=== PATIENT | female | born 2000 | race Two or more races ===

== ENCOUNTER 2020-12-14 15:20 | Emergency (ER) | payer OTHER ==
[~2020-12-14] VITALS: Ht 162.6 cm; Wt 82.6 kg
== END 2020-12-14 18:56 | disposition home or self-care (01) ==
LOC: EMR PED 15:20 → ER 15:55
DX: O26.891 Other specified pregnancy related conditions, first trimester (principal); R10.2 Pelvic and perineal pain; Z3A.09 9 weeks gestation of pregnancy